=== PATIENT | male | born 1995 | race Caucasian/White ===

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

== ENCOUNTER 2017-09-08 15:05 | Emergency (ER) | payer BC ==
--- NOTE | 2017-09-08 15:19 | EDM.PDOC ---
ED HPI GENERAL MEDICAL PROBLEM - General Chief Complaint: Lower Extremity Injury/Pain Stated Complaint: ANKLE INJURY [id number] Time Seen by Provider: 09/08/17 15:19 Source of Information: Reports: Patient, Family, RN, RN Notes Reviewed History Limitations: Reports: No Limitations - History of Present Illness INITIAL COMMENTS - FREE TEXT/NARRATIVE: Pt presents to ER with c/o left ankle pain. He states he rolled the ankle a week or more ago and the swelling and pain has not resolved. Onset: Sudden Onset Date: 08/28/17 Location: Reports: Lower Extremity, Left Quality: Reports: Ache, Throbbing Severity: Mild Improves with: Reports: None Worsens with: Reports: None Associated Symptoms: Reports: No Other Symptoms Left Ankle Pain Score (Numeric/FACES): 2 - Related Data Allergies Allergy/AdvReac Type Severity Reaction Status Date / Time amoxicillin trihydrate Allergy Rash Verified 09/08/17 15:09 [From Augmentin] cefixime [From Suprax] Allergy Rash Verified 09/08/17 15:09 ceftriaxone sodium Allergy Rash Verified 09/08/17 15:09 [From Rocephin] potassium clavulanate Allergy Rash Verified 09/08/17 15:09 [From Augmentin] Home Meds: Home Meds Ibuprofen [Motrin] 800 mg PO ASDIRECTED PRN 03/08/15 [History] Past Medical History Other Musculoskeletal History: fracture left ankle. Tumor removed left knee Other Neuro History: febrile seizure - Past Surgical History HEENT Surgical History: Reports: Other (See Below) Other HEENT Surgeries/Procedures: wisdom teeth today Social & Family History - Family History Family Medical History: Noncontributory - Tobacco Use Smoking Status *Q: Never Smoker Years of Tobacco use: 1 Second Hand Smoke Exposure: No - Caffeine Use Caffeine Use: Reports: None - Recreational Drug Use Recreational Drug Use: No - Living Situation & Occupation Living situation: Reports: with Family Occupation: Student Review of Systems - Review of Systems Review Of Systems: ROS reveals no pertinent complaints other than HPI. ED EXAM, GENERAL - Physical Exam Exam: See Below Exam Limited By: No Limitations General Appearance: Alert, WD/WN, No Apparent Distress Eye Exam: Bilateral Eye: EOMI, Normal Inspection, PERRL Ears: Normal External Exam, Normal Canal, Hearing Grossly Normal, Normal TMs Nose: Normal Inspection, Normal Mucosa, No Blood Throat/Mouth: Normal Inspection, Normal Lips, Normal Teeth, Normal Gums, Normal Oropharynx, Normal Voice, No Airway Compromise Head: Atraumatic, Normocephalic Neck: Normal Inspection, Supple, Non-Tender, Full Range of Motion Respiratory/Chest: No Respiratory Distress, Lungs Clear, Normal Breath Sounds, No Accessory Muscle Use, Chest Non-Tender Cardiovascular: Normal Peripheral Pulses, Regular Rate, Rhythm, No Edema, No Gallop, No JVD, No Murmur, No Rub Peripheral Pulses: 2+: Radial (L), Radial (R) GI/Abdominal: Normal Bowel Sounds, Soft, Non-Tender, No Organomegaly, No Distention, No Abnormal Bruit, No Mass (Male) Exam: Deferred Rectal (Males) Exam: Deferred Back Exam: Normal Inspection, Full Range of Motion, NT Extremities: No Pedal Edema, Joint Swelling (left ankle), Limited Range of Motion (left ankle), Other (ecchymosis left ankle) Neurological: Alert, Oriented, CN II-XII Intact, Normal Cognition, Normal Gait ( slight limp), Normal Reflexes, No Motor/Sensory Deficits Psychiatric: Normal Affect, Normal Mood Skin Exam: Warm, Dry, Intact, Ecchymosis (left ankle) Lymphatic: No Adenopathy ED TRAUMA EXTREMITY PROCEDURES - Splinting Left Lower Extremity Splint Site: left ankle/lower leg/foot Pre-Procedure NV Status: Normal Post-Procedure NV Status: Normal Splint Material: Boot Orthotic Applied & Form Fitted By: Nurse Provider Post-Splint Application NV Check: NV Status Normal, Good Position Complications: No Course - Vital Signs Last Recorded V/S: Last Vital Signs Temp 98.5 F 09/08/17 15:20 Pulse 83 09/08/17 15:20 Resp 16 09/08/17 15:20 BP 146/81 H 09/08/17 15:20 Pulse Ox 100 09/08/17 15:20 - Orders/Labs/Meds Orders: Active Orders 24 hr Category Date Time Status Orthopedic Treatments [RC] ASDIRECTED Care 09/08/17 16:00 Active - Radiology Interpretation Free Text/Narrative:: Left ankle xray: avulsion fracture of the distal fibula on the left See rad report Departure - Departure Time of Disposition: 15:54 Disposition: Home, Self-Care 01 Condition: Fair Clinical Impression: Avulsion fracture of distal fibula - Discharge Information Instructions: Fibular Ankle Fracture Treated With or Without Immobilization, Adult Referrals: PCP,None [Primary Care Provider] - Forms: ED Department Discharge Additional Instructions: Ice and elevation as tolerated Use Cam Boot as tolerated Tylenol/Ibuprofen as directed for pain Follow up with your primary care facility or ortho if no improvement - My Orders Last 24 Hours: My Active Orders 09/08/17 16:00 Orthopedic Treatments [RC] ASDIRECTED - Assessment/Plan Last 24 Hours: My Active Orders 09/08/17 16:00 Orthopedic Treatments [RC] ASDIRECTED
[2017-09-08 15:21] VITALS: BP 146/81
--- NOTE | 2017-09-08 15:37 | CR ---
Clinical history: 22-year-old male with ankle pain swelling and bruising (injury one week ago). Interpretation: Abnormal. Pronounced soft tissue swelling over the lateral malleolus and left ankle joint effusion. Smoothly corticated triangular bone fragment without acute "donor" site distal left fibula (os subfib ulare). No sign of acute left ankle fracture or disruption of the tibiotalar mortise joint. Transverse linear sclerotic lines distal tibial diaphysis new since January 2009 (sclerotic line body of the os calcis was present earlier). CONCLUSION: Severe sprain. No acute fracture or dislocation left ankle.
== END 2017-09-08 16:01 | disposition home or self-care (01) ==
LOC: DL.ED 15:05
DX: S82.832A Other fracture of upper and lower end of left fibula, initial encounter for closed fracture (principal); Z88.1 Allergy status to other antibiotic agents; Z88.8 Allergy status to other drugs, medicaments and biological substances; X58.XXXA Exposure to other specified factors, initial encounter; Y93.67 Activity, basketball
CPT/HCPCS: 73610-LT; 99283